=== PATIENT | female | born 2000 | race Caucasian/White ===

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

== ENCOUNTER → 2021-01-27 09:40 | Outpatient (BNVA) | payer MEDICAID, SELFPAY | PROVIDERS: Visit Provider Obstetrics & Gynecology | DX: Z34.01 Encounter for supervision of normal first pregnancy, first trimester (principal) | CPT/HCPCS: 80307; 84315; 85027; 86592; 86762; 86803; 86850; 86900; 87086; 87340; 87806 ==

== ENCOUNTER → 2021-02-10 09:06 | Outpatient (BNVA) | payer MEDICAID, SELFPAY | PROVIDERS: Visit Provider Obstetrics & Gynecology | DX: Z34.01 Encounter for supervision of normal first pregnancy, first trimester (principal) | CPT/HCPCS: 84315; 87491; 87591 ==

== ENCOUNTER → 2021-03-11 14:37 | Outpatient (BNVA) | payer MEDICAID, SELFPAY | PROVIDERS: Visit Provider Nurse Practitioner Women's Health | DX: O99.331 Smoking (tobacco) complicating pregnancy, first trimester (principal); Z78.9 Other specified health status; Q83.3 Accessory nipple | CPT/HCPCS: 82105; 84315 ==

== ENCOUNTER → 2021-04-09 13:04 | Outpatient (BNVA) | payer MEDICAID, SELFPAY | PROVIDERS: Visit Provider Obstetrics & Gynecology | DX: Z34.92 Encounter for supervision of normal pregnancy, unspecified, second trimester (principal); Z3A.21 21 weeks gestation of pregnancy | CPT/HCPCS: 76805 ==

== ENCOUNTER 2021-04-12 12:54 | Outpatient (CLI) | payer MEDICAID, SELFPAY ==
[2021-04-12] VITALS (7 sets, daily range): BP systolic 113–128; BP diastolic 56–72; PULSE 50–64; RESP 15–16; TEMP 37.1; BMI 20.4
[2021-04-12] MEDS: ketorolac 30 mg/mL INJ IVP (13:34)
[2021-04-12 13:56] LABS: Amphetamines Screen Urine Negative (Negative); Barbiturates Screen Urine Negative (Negative); Benzodiazepines Screen Urine Negative (Negative); Cocaine Screen Urine Negative (Negative); Opiate Screen Urine Negative (Negative); PCP Screen Urine Negative (Negative); THC Screen Urine Positive (Negative)
[2021-04-12 13:57] LABS: Amorphous Sediment Urine 2+ /hpf; Bacteria Urine 1+ /hpf; Bilirubin Urine Neg (Negative); Blood Urine 3+ (Negative); Glucose Urine UA Norm (Normal); Ketones Urine Negative (Negative); Leukocyte Esterase Urine Negative (Negative); Nitrate Urine Negative (Negative); Protein Urine Neg (Negative); RBC Urine 25-40 /hpf (0-2); Specific Gravity, Urine 1.015 (1.005-1.030); Squamous Epithelial Cell Urine 0-4 /hpf (0-5); Urine Appearance Hazy (CLEAR); Urine Color Yellow (Yellow); Urobilinogen Urine Norm (Negative); WBC Urine 0-4 /hpf (0-5); pH Urine 7 (5-7)
[2021-04-12 13:58] LABS: Add Urine Culture? Yes
--- NOTE | 2021-04-12 14:26 | PC.NURSE ---
Prescription for Keflex 750mg bid x7 days, no refills called to Will at [facility] in [place]. Patient requested this pharmacy because her preferred pharmacy is closed today.
[2021-04-12] MEDS: cefTRIAXone 2,000 MG in sodium chloride 0.9% (plus) 50 ML 100 MG IV (14:39)
== END 2021-04-12 15:07 | disposition home or self-care (01) ==
LOC: OPOB 12:57 → OBGYN 12:59
PROVIDERS: Visit Provider Obstetrics & Gynecology
DX: O26.899 Other specified pregnancy related conditions, unspecified trimester (principal); Z3A.00 Weeks of gestation of pregnancy not specified; R10.9 Unspecified abdominal pain
CPT/HCPCS: 80306; 81001; 87086; 96374; 99211; J0696; J1885

== ENCOUNTER → 2021-05-06 11:22 | Outpatient (BNVA) | payer MEDICAID, SELFPAY | PROVIDERS: Visit Provider Nurse Practitioner Women's Health | DX: O99.331 Smoking (tobacco) complicating pregnancy, first trimester (principal); Q83.3 Accessory nipple; N63.20 Unspecified lump in the left breast, unspecified quadrant | CPT/HCPCS: 82950; 84315 ==

== ENCOUNTER → 2021-06-03 10:24 | Outpatient (BNVA) | payer MEDICAID, SELFPAY | PROVIDERS: Visit Provider Obstetrics & Gynecology | DX: Z34.01 Encounter for supervision of normal first pregnancy, first trimester (principal) | CPT/HCPCS: 84315; 85025 ==

== ENCOUNTER 2021-07-11 16:21 | Outpatient (CLI) | payer MEDICAID, SELFPAY ==
[2021-07-11] VITALS (16 sets, daily range): BP systolic 108–170; BP diastolic 56–83; PULSE 49–112; RESP 18; TEMP 36.8; BMI 27.8
[2021-07-11 17:06] LABS: Bacteria Urine 1+ /hpf; Bilirubin Urine Neg (Negative); Blood Urine Neg (Negative); Glucose Urine UA 1+ (Normal); Ketones Urine 1+ (Negative); Leukocyte Esterase Urine Negative (Negative); Nitrate Urine Negative (Negative); Protein Urine Neg (Negative); Specific Gravity, Urine 1.005 (1.005-1.030); Urine Appearance Clear (CLEAR); Urine Color Straw (Yellow); Urobilinogen Urine Norm (Negative); WBC Urine 0-4 /hpf (0-5); pH Urine 6.5 (5-7)
[2021-07-11 17:07] LABS: Add Urine Culture? No; Mucus Urine TRACE /hpf
[2021-07-11] MEDS: NIFEdipine ER (24 hr) 30 mg Tablet PO (17:11)
== END 2021-07-11 19:35 | disposition home or self-care (01) ==
LOC: OPOB 16:23 → OBGYN 16:24
PROVIDERS: Visit Provider Obstetrics & Gynecology
DX: O26.899 Other specified pregnancy related conditions, unspecified trimester (principal); Z3A.00 Weeks of gestation of pregnancy not specified; R10.9 Unspecified abdominal pain; R11.2 Nausea with vomiting, unspecified
CPT/HCPCS: 59025; 81001; 99211

== ENCOUNTER 2021-07-14 21:52 | Outpatient (CLI) | payer MEDICAID, SELFPAY ==
[2021-07-14 21:52] VITALS: BMI 23.6
[2021-07-14 22:00] VITALS: BP 136/71; PULSE 86; TEMP 36.8
[2021-07-14 22:15] VITALS: RESP 17
[2021-07-14 22:31] LABS: Add Urine Culture? No; Bacteria Urine TRACE /hpf; Bilirubin Urine Neg (Negative); Blood Urine Neg (Negative); Glucose Urine UA Norm (Normal); Ketones Urine 1+ (Negative); Leukocyte Esterase Urine Negative (Negative); Nitrate Urine Negative (Negative); Protein Urine Neg (Negative); RBC Urine 0-4 /hpf (0-2); Specific Gravity, Urine 1.005 (1.005-1.030); Squamous Epithelial Cell Urine 0-4 /hpf (0-5); Urine Appearance Clear (CLEAR); Urine Color Colorless (Yellow); Urobilinogen Urine Norm (Negative); WBC Urine 0-4 /hpf (0-5); pH Urine 8 (5-7)
[2021-07-14 23:59] VITALS: BP 137/86; PULSE 77
[2021-07-15] MEDS: NIFEdipine ER (24 hr) 30 mg Tablet PO (00:23)
[2021-07-15 01:06] VITALS: BP 132/82; PULSE 84
[2021-07-15 01:18] VITALS: BP 132/82; PULSE 84; RESP 17
== END 2021-07-15 01:18 | disposition home or self-care (01) ==
LOC: OPOB 21:55 → OBGYN 21:55
PROVIDERS: Visit Provider Obstetrics & Gynecology
DX: O26.899 Other specified pregnancy related conditions, unspecified trimester (principal); Z3A.00 Weeks of gestation of pregnancy not specified; R10.9 Unspecified abdominal pain
CPT/HCPCS: 59025; 81001; 99211

== ENCOUNTER → 2021-07-29 08:37 | Outpatient (BNVA) | payer MEDICAID, SELFPAY | PROVIDERS: Visit Provider Obstetrics & Gynecology | DX: Z34.01 Encounter for supervision of normal first pregnancy, first trimester (principal) | CPT/HCPCS: 80307; 81000; 87081 ==

== ENCOUNTER 2021-08-09 21:13 | Inpatient (IN) | payer MEDICAID, SELFPAY ==
[2021-08-09] VITALS (9 sets, daily range): BP systolic 113–142; BP diastolic 66–74; PULSE 70–103; TEMP 36.6–37.6; BMI 26.0
--- NOTE | 2021-08-09 22:52 | PM.OPHPUD ---
Labor & Delivery H&P Update Date of Procedure: August 09, 2021 Date H&P Performed: 08/04/21 H&P update information: I have reviewed H&P completed within last 30 days, I have examined patient prior to procedure and Changes to prior documentation as noted here Changes to previous documentation: the patient presents with SROM at 2008 hours. Clear. Copious fluid on admission Admission Diagnosis: IUP @ 37w6d Related Problem List Diagnoses (1) Tobacco use in : (2) Supervision of normal :
[2021-08-09 23:28] LABS: Basophils % 0.3 %; Eosinophils % 0.2 %; Hematocrit 34.5 % (37.0-47.0); Hemoglobin 12.2 g/dL (11.5-15.3); Lymphocytes # 1.5 10^3/uL (1.5-6.5); Mean Corpuscular HGB Conc 35.4 g/dL (30.0-36.0); Mean Corpuscular Hemoglobin 33.9 pg (28.0-34.0); Mean Corpuscular Volume 95.8 fl (81-99); Mean Platelet Volume 13.8 fL (7.4-10.4); Monocytes % 7.3 %; Neutrophils % 80.7 %; Nucleated Red Blood Cells % 0 %; Platelet Count 105 10^3/cmm (130-400); Red Cell Distribution Width 12.2 % (12.1-15.1); White Blood Count 13.4 10^3/uL (4.5-13.0)
[2021-08-10] VITALS (80 sets, daily range): BP systolic 107–171; BP diastolic 56–91; PULSE 52–97; RESP 16–17; TEMP 36.6–36.8; O2SAT 100
[2021-08-10 07:12] LABS: Amphetamines Screen Urine Negative (Negative); Barbiturates Screen Urine Negative (Negative); Benzodiazepines Screen Urine Negative (Negative); Cocaine Screen Urine Negative (Negative); Opiate Screen Urine Negative (Negative); PCP Screen Urine Negative (Negative); THC Screen Urine Positive (Negative)
[2021-08-10] MEDS: dextrose 5%-lactated ringers 1,000 ML 125 ML IV (10:41)
[2021-08-10] MEDS: oxytocin 30 UNIT/500 ML BAG IV (10:42)
--- NOTE | 2021-08-10 10:55 | ANES.PREANE2 ---
Pre-Anesthetic Assessment Pre-Anesthetic Assessment: Height/Weight: Height 1.55 m Weight 62.596 kg Temp Pulse BP 98.0 F 67 121/68 08/10/21 04:00 08/10/21 10:43 08/10/21 10:43 Was Beta Mary taken within 24 hours: N/A Was Clonidine taken within 24 hours: N/A Social: Social History: No alcohol and No tobacco Exam: Pre-Anes Outpt Exam: alert, oriented x 3, clear to auscultation bilaterally and regular rate & rhythm Airway: Submandibular: WNL Cervical ROM: WNL MP: 2 Dentition: Full History/ROS: No significant history except as noted Anesthetic Plan: ASA status: 2 Anesthesia: Regional (specify below) (labor epidural) Risk of > 500 ml blood loss (7ml/kg in children): No Meds/Allergies Current Medications: Current Medications Generic Name Dose Route Start Last Admin Trade Name Freq PRN Reason Stop Dose Admin Dextrose/Lactated Ringer's 1,000 mls @ 125 m ls/hr 08/09/21 23:15 08/10/21 10:41 Dextrose 5%-Lact ated Ringers IV 125 mls/hr .Q8H AG Administration Oxytocin 30 unit in 500 ml s @ 1 mls/hr 08/10/21 10:15 08/10/21 10:42 Pitocin IV 1 milliunit/min .Q24H AG 1 mls/hr Administration Protocol 1 MILLIUNIT/MIN PFSH Anesthesia PFSH: Medical History Fibroadenoma Nephrolithiasis No pertinent past medical history neghx: htn,dm,thyroid,dvt/pe PCP: [facility] Surgical History History of lumpectomy (~2015) Left breast-- fibroadenoma Family History Mother Hypertension Family/Other Ovarian cancer Maternal Great Aunt--dx age unknown Grandmother Thyroid disease Paternal Grandfather Heart disease Paternal Denies family history of Colon cancer Diabetes Hypercholesteremia Breast cancer Uterine cancer Stroke Social History Smoking and tobacco status: never smoked Alcohol intake: former Former alcohol use details: prior to Other details last substance use: marijuana last used beginning of 01/2021 Marital status: Single Female Reproductive History: Date of last menstrual period: 07/01/20 : 1 Data Anesthesia CBC & Chem 7: 08/09/21 22:45 Other Labs: Laboratory Results - last 48 hr 08/09/21 08/10/21 22:45 06:40 WBC 13.4 H RBC 3.60 L Hgb 12.2 Hct 34.5 L MCV 95.8 MCH 33.9 MCHC 35.4 RDW 12.2 Plt Count 105 L MPV 13.8 H Neut % (Auto) 80.7 Lymph % (Auto) 11.0 Hettinger % (Auto) 7.3 Eos % (Auto) 0.2 Baso % (Auto) 0.3 Neut # (Auto) 10.80 H Lymph # (Auto) 1.5 Hettinger # (Auto) 1.0 H Eos # (Auto) 0.0 Baso # (Auto) 0.0 Nucleated RBC % (auto) 0 Nucleated RBCs # 0.0 Urine Opiates Screen Negative Ur Barbiturates Screen Negative Ur Phencyclidine Scrn Negative Ur Amphetamines Screen Negative U Benzodiazepines Scrn Negative Urine Cocaine Screen Negative U Marijuana (THC) Screen Positive H Cardiac Studies: No Data to Display
[2021-08-10] MEDS: lactated ringers 1,000 ML 999 ML IV (12:50)
--- NOTE | 2021-08-10 13:19 | PM.PN ---
Vitals/I&O/Wt Last Vital Signs Temp 98.0 F 08/10/21 04:00 Pulse 63 08/10/21 13:03 BP 122/69 08/10/21 13:03 08/09/21 08/10/21 08/10/21 22:59 06:59 14:59 Intake Total 271.617 / 271.617 Balance 271.617 / 271.617 Weight last 48 hrs Weight 138 lb Physical Exam Narrative: EXAM NARRATIVE: The patient has been allowed to labor over night as she was having pretty regular contractions. She has not had further dilation of her cervix. Pitocin has been started. She is starting to have regular pain and is requesting an epidural. Cervix 3/90/0, status is overall very reassuring. GI: COMMON NORMALS: non-tender Extremity: COMMON NORMALS: no calf tenderness Data : 08/09/21 22:45 Attestations Medical Necessity Statement*: The patient will spend 2 or more midnights Coding Level of Care Code Acute Gerentological Physiotherapist for Maeve Cheek
--- NOTE | 2021-08-10 14:20 | P.ANES_ITS ---
Anesthesia Procedures Procedure/Date: 08/10/21 SONIA Epidural: Time Out Performed: Yes Consents Signed: Procedure Consent Consent: requested by attending/covering physician, from patient, risks and bene fits reviewed and patient agrees to proceed Lumbar Level: L3-L4 Epidural position: sitting Epidural procedure: sterile prep of area, 1% lidocaine to numb the area, 18 g needle, negative for paresthesia passed, test dose given, 1.5% xylocaine 1:200k epi, placed PCEA, no systemic response, sterile dressing applied, L.U.D. no apparent complications and 0.2% Ropiavacaine @ mls/hr (13) Additional Comments: SUSAN 6 TAped at 12 at skin.
[2021-08-10] MEDS: ampicillin 2,000 MG in sodium chloride 0.9% (plus) 50 ML 100 MG IV (15:36)
[2021-08-10] MEDS: ampicillin 1,000 MG in sodium chloride 0.9% (plus) 50 ML 100 MG IV (19:35)
--- NOTE | 2021-08-10 22:36 | PM.DELIVERY ---
Delivery Note: Date of delivery: August 10, 2021 Pre-delivery diagnoses: IUP at 38 weeks Post-delivery diagnoses: same delivered Procedure: Op report anesthesia: Epidural Delivering Physician: jeanie Estimated blood loss (mL): 75 Findings: term female in the VERONICA presentation with a single nuchal cord, reduced at the perineum Pre-Delivery Course: The patient was admitted with PROM. She was having strong contractions, but she didn't make any cervical change. Pitocin was started. at 18 hours of ROM, ampicillin was started for infection prophylaxis. The patient had complete cervical dilation and began pushing. Delivery: The patient had complete cervical dilation and began to push. She was having decelerations that were going to the 60's and staying for approximately one minute, then the baby would recover. The mother was making poor pushing efforts. The vacuum was placed onto the scalp and the pumped into the green zone. The head was at the +3 station. The vacuum popped off after 16 seconds. There was a nice crown at this point. The vacuum was applied at the end of the next push because the mother again was having poor pushing effort. The vacuum popped off after 4 seconds. The heart rate continued to go to the 60's and stay for at least a minute before recovery. Next, I asked permission to perform an episiotomy with the next push. I injected about 10 ml of 2% lidocaine in the perineal body and with the next push, I cut a midline episiotomy. The pushing efforts were again poor. With the next push, I placed the vacuum for a third time and pumped it to the green with the contraction. I held pressure on the perineum with my left hand and used the vacuum with my right hand and the head delivered in the VERONICA position over the midline episiotomy under epidural anesthesia. The nose and mouth were bulb suctioned. There was a single nuchal cord which was reduced at the perineum. The shoulders and body delivered atraumatically. The baby was placed onto the mother's abdomen. The cord was clamped and cut. Cord blood was obtained. The placenta delivered spontaneously. It was inspected and found to be intact. Inspection of the perineum revealed There was no extension of the episiotomy. Estimated blood loss 75 mL. Apgars on baby were 8 at 1 minute and 10 at 5 minutes. Weight of baby is 6 pounds 11 ounces. Mother and baby were stable post delivery. History History History 1 Term Miscarriages/Ectopic Living Children A&P Assessment and plan (1) Tobacco use in : Status: Acute Qualifiers: Trimester: first trimester Qualified Code(s): O99.331 - Smoking (tobacco) complicating , first trimester (2) Supervision of normal : Status: Acute Qualifiers: Normal : normal first Trimester: first trimester Qualified Code(s): Z34.01 - Encounter for supervision of normal first , first trimester Coding Level of Care Code Acute Collection Coordinator for Chg Fwd Diagnoses Tobacco use in O99.331 Trimester: first trimester Supervision of normal Z34.01 Normal : normal first Trimester: first trimester
[2021-08-10] MEDS: ibuprofen 800 mg tablet PO (22:59)
[2021-08-10] MEDS: HYDROcodone-acetaminophen 5-325 mg Tablet PO (23:48)
[2021-08-11] VITALS (15 sets, daily range): BP systolic 112–157; BP diastolic 62–91; PULSE 64–96; RESP 18; TEMP 36.3–36.8
[2021-08-11] MEDS: lanolin oint 7 gm 1 APPLIC TOPICAL (06:02)
[2021-08-11] MEDS: benzocaine-menthol 78 gm Canister 1 SPRAY TOPICAL (06:03)
[2021-08-11] MEDS: HYDROcodone-acetaminophen 5-325 mg Tablet PO ×3 (07:03→22:40)
[2021-08-11] MEDS: ibuprofen 800 mg tablet PO ×3 (09:14→20:55)
[2021-08-11] MEDS: docusate sodium 100 mg Capsule PO ×2 (09:14→20:55)
[2021-08-11] MEDS: prenatal vitamin Capsule 1 CAP PO (09:14)
--- NOTE | 2021-08-11 12:34 | P.PN_ITS ---
Vitals/I&O/Wt Last Vital Signs Temp 97.6 F 08/11/21 07:47 Pulse 96 08/11/21 07:39 Resp 18 08/11/21 07:47 BP 121/81 08/11/21 07:39 Pulse Ox 100 08/10/21 14:13 08/10/21 08/11/21 08/11/21 22:59 06:59 14:59 Intake Total 390.816 / 1333.300 850.667 / 2183.967 Output Total 1200 / 1200 1900 / 3100 Balance -809.184 / 133.300 -1049.333 / -916.033 Weight last 48 hrs Weight 138 lb Physical Exam Narrative: EXAM NARRATIVE: The patient is doing well this morning. No concern s Const: COMMON NORMALS: no acute distress, average body habitus, patient oriented x3, no limitations, healthy appearing, alert and well nourished GENERAL APPEARANCE: cooperative, comfortable, well kempt and well developed ORIENTATION/CONSCIOUSNESS: Yes awake, Yes oriented to person, Yes oriented to place and Yes oriented to time Resp: COMMON NORMALS: normal respiratory effort EFFORT & INSPECTION: Yes able to speak in complete sentences GI: COMMON NORMALS: Soft to palpation and non-tender PALPATION: Yes Soft to palpation Extremity: COMMON NORMALS: no calf tenderness Neuro: COMMON NORMALS: patient oriented x3 SENSORIUM/ORIENTATION: Yes alert, Yes oriented to person, Yes oriented to place and Yes oriented to time Psych: COMMON NORMALS: mental status grossly normal, Normal thought process present, cooperative, normal affect and speech normal APPEARANCE: Yes grossly normal and Yes well kempt ATTITUDE: Yes calm and Yes engaged ACTIVITY/MOTOR BEHAVIOR: Yes appropriate eye contact SPEECH: Yes normal speech THOUGHT PROCESS: Normal thought process present Urinary Catheter Management^: Lewis: Cath Placed During This Visit: yes, but has since been removed by the nurse Reason for Continuing Indwelling Catheter: Required Immobilization for Trauma or Surgery or Anesthesia Urinary Catheter Date of Insertion: 08/10/21 Urinary Catheter Time of Insertion: 15:27 Date Urinary Catheter Removed: 08/10/21 Time Urinary Catheter Discontinued: 21:29 Data : 08/09/21 22:45 A&P Assessment and plan (1) Supervision of normal : doing well routine care Status: Acute Qualifiers: Normal : normal first Trimester: first trimester Qualified Code(s): Z34.01 - Encounter for supervision of normal first , first trimester Attestations Medical Necessity Statement*: the patient has already been inpatient for two days Coding Level of Care Code Acute Field Superintendent for Chg Fwd Diagnoses Supervision of normal Z34.01 Normal : normal first Trimester: first trimester
--- NOTE | 2021-08-11 13:21 | ANE.PACU2 ---
Inpatient post-anesthesia follow up: Airway intact: Yes Vital signs: Temperature 98.5 F Pulse Rate 64 Respiratory Rate 16 Blood Pressure 116/60 Pulse Oximetry 100 Oxygen Delivery Me thod Room Air Oxygen Flow Rate Fraction of Inspir ed Oxygen Hydration adequate: Yes Nausea and vomiting: No Pain level: 2 Mental status: Baseline
[2021-08-11 13:38] LABS: Hematocrit 32.3 % (37.0-47.0); Hemoglobin 11.3 g/dL (11.5-15.3); Mean Corpuscular Hemoglobin 33.3 pg (28.0-34.0); Mean Corpuscular Volume 95.3 fl (81-99); Mean Platelet Volume 14.3 fL (7.4-10.4); Platelet Count 104 10^3/cmm (130-400); Red Blood Count 3.39 10^6/uL (4.1-5.3); Red Cell Distribution Width 12.3 % (12.1-15.1); White Blood Count 13.1 10^3/uL (4.5-13.0)
--- NOTE | 2021-08-11 15:00 | PC.NURSE ---
DFS electric utility lineworker in patients room at this time.
[2021-08-12 04:20] VITALS: BP 120/87; PULSE 68
[2021-08-12] MEDS: acetaminophen 325 mg Tablet 650 MG PO (05:05)
--- NOTE | 2021-08-12 07:09 | P.DS_ITS ---
Discharge Providers Date of Admission: 08/09/21 21:13 Date of Discharge: August 12, 2021 Attending Provider at Admission: Claire Ortiz MD Attending Provider at Discharge: Claire Ortiz MD Diagnoses at Discharge Discharge Diagnosis (1) Supervision of normal : Status: Acute Qualifiers: Normal : normal first Trimester: first trimester Qualified Code(s): Z34.01 - Encounter for supervision of normal first , first trimester Reason for Visit Reason for Visit: ROM Physical Exam Narrative: EXAM NARRATIVE: The patient is doing well this morning. Ready to be discharged. No concerns Const: COMMON NORMALS: no acute distress, average body habitus, patient oriented x3, no limitations, healthy appearing, alert and well nourished GENERAL APPEARANCE: cooperative, comfortable, well kempt and well developed ORIENTATION/CONSCIOUSNESS: Yes awake, Yes oriented to person, Yes oriented to place and Yes oriented to time Resp: COMMON NORMALS: normal respiratory effort EFFORT & INSPECTION: Yes able to speak in complete sentences GI: COMMON NORMALS: Soft to palpation and non-tender PALPATION: Yes Soft to palpation Extremity: COMMON NORMALS: no calf tenderness Neuro: COMMON NORMALS: patient oriented x3 SENSORIUM/ORIENTATION: Yes alert, Yes oriented to person, Yes oriented to place and Yes oriented to time Psych: COMMON NORMALS: mental status grossly normal, Normal thought process present, cooperative, normal affect, speech normal and activity/motor behavior normal APPEARANCE: Yes grossly normal and Yes well kempt ATTITUDE: Yes calm and Yes engaged ACTIVITY/MOTOR BEHAVIOR: Yes appropriate eye contact SPEECH: Yes normal speech THOUGHT PROCESS: Normal thought process present Urinary Catheter Management^: Lewis: Cath Placed During This Visit: yes, but has since been removed by the nurse Reason for Continuing Indwelling Catheter: Required Immobilization for Trauma or Surgery or Anesthesia Urinary Catheter Date of Insertion: 08/10/21 Urinary Catheter Time of Insertion: 15:27 Date Urinary Catheter Removed: 08/10/21 Time Urinary Catheter Discontinued: 21:29 Discharge Data Data Completed and Pending: Labs from last 24 hours 08/11/21 10:00 WBC 13.1 H RBC 3.39 L Hgb 11.3 L Hct 32.3 L MCV 95.3 MCH 33.3 MCHC 35.0 RDW 12.3 Plt Count 104 L MPV 14.3 H Vitals: Last Vital Signs Temp 98.3 F 08/11/21 22:45 Pulse 68 08/12/21 04:20 Resp 18 08/11/21 15:22 BP 120/87 08/12/21 04:20 Pulse Ox 100 08/10/21 14:13 Discharge Plan Discharge Patient Disposition: Home Condition: Stable Prescriptions: Continued prenat.vits,robby,hbr-cpxr-dcvyf Tablet 1 tab PO DAILY RF: 0 Discharge Orders: Discharge Order (Routine); Ordered 08/12/21 Ordered By: Claire Ortiz Referrals: Petr Rocha MD [Physician] - 09/30/21 2:00 pm (Your 6 week post- appointment is scheduled for 09/30/21 @2:00. ) Patient Instructions: Depression (DC), Bleeding (DC), Preeclampsia and Eclampsia After Delivery (GEN), OB Discharge Report, OB Food/Drug Interaction Guide, Opioid Safety, OB Home Care, OB Vaginal Deliveries - [facility] Discharge Attestations Time Spent in Discharge Care*: less than 30 min Status at Discharge: Cognitive status at discharge: cognitively intact , Behavioral status at discharge: cooperative , Quality Metrics Clinical Quality Measures During this hospital stay, did patient experience: None Coding Level of Care Code Acute Chg FW DC note Diagnoses Supervision of normal Z34.01 Normal : normal first Trimester: first trimester
[2021-08-12] MEDS: ibuprofen 800 mg tablet PO (08:26)
[2021-08-12] MEDS: docusate sodium 100 mg Capsule PO (08:26)
[2021-08-12] MEDS: prenatal vitamin Capsule 1 CAP PO (08:27)
[2021-08-12 09:40] VITALS: BP 116/60; PULSE 64; RESP 16; TEMP 36.9
== END 2021-08-12 10:15 | disposition home or self-care (01) | DRG 807 ==
PROVIDERS: Admitting Provider Obstetrics & Gynecology; Visit Provider Obstetrics & Gynecology
DX: O76 Abnormality in fetal heart rate and rhythm complicating labor and delivery (principal); Z37.0 Single live birth; O69.2XX0 Labor and delivery complicated by other cord entanglement, with compression, not applicable or unspecified; O99.334 Smoking (tobacco) complicating childbirth; Z3A.38 38 weeks gestation of pregnancy; O75.9 Complication of labor and delivery, unspecified; Q83.3 Accessory nipple; N63.20 Unspecified lump in the left breast, unspecified quadrant
CPT/HCPCS: 36415; 51702; 59409; 80306; 85025; 85027; 99211; J0290; J2795

== ENCOUNTER 2022-03-15 18:39 | Emergency (ER) | payer MEDICAID, SELFPAY ==
[2022-03-15 20:02] VITALS: PULSE 77; RESP 18; TEMP 36.8; O2SAT 97; BMI 20.7
[2022-03-15 20:16] LABS: Basophils # 0.1 10^3/uL (0.0-0.1); Basophils % 0.8 %; Eosinophils # 0.1 10^3/uL (0.0-0.8); Eosinophils % 0.7 %; Hematocrit 42.9 % (37.0-47.0); Hemoglobin 14.9 g/dL (11.5-15.3); Lymphocytes # 2.5 10^3/uL (1.5-6.5); Lymphocytes % 20.8 %; Mean Corpuscular HGB Conc 34.7 g/dL (30.0-36.0); Mean Corpuscular Hemoglobin 31.4 pg (28.0-34.0); Mean Corpuscular Volume 90.3 fl (81-99); Mean Platelet Volume 12.1 fL (7.4-10.4); Monocytes % 8.8 %; Neutrophils # 8.09 10^3/uL (1.8-8.0); Neutrophils % 68.6 %; Nucleated Red Blood Cells % 0 %; Platelet Count 264 10^3/cmm (130-400); Red Blood Count 4.75 10^6/uL (4.1-5.3); Red Cell Distribution Width 12.5 % (12.1-15.1); White Blood Count 11.8 10^3/uL (4.5-13.0)
[2022-03-15 20:25] LABS: Alanine Aminotransferase 10 U/L (0-33); Albumin Level 4.8 g/dL (3.5-5.2); Alkaline Phosphatase 113 IU/L (35-105); Anion Gap 16.7 (5-19); Aspartate Amino Transferase 14 U/L (0-32); Blood Urea Nitrogen 12 mg/dL (6-20); Calcium 9.4 mg/dL (8.5-10.5); Carbon Dioxide 24 mmol/L (22-29); Chloride 102 mmol/L (98-107); Globulin 3.3 g/dL (1.3-4.6); Glomerular Filtration Rate 106.7 mL/min (90-130); Glucose 106 mg/dL (65-115); Osmolality Calculated 288 mOsm/kg (285-295); Potassium 3.7 mmol/L (3.5-5.1); Sodium 139 mmol/L (136-145); Total Bilirubin 0.3 mg/dL (0.15-1.2); Total Protein 8.1 g/dL (6.6-8.7)
[2022-03-15 21:10] LABS: Slide Review Slide Review Perform
--- NOTE | 2022-03-15 21:59 | ECG_ITS ---
[facility] Test Date: 2022-03-15 Pat Name: Joshua Sevilla Department: Room: Gender: Female Recreational Specialist: : 2000 Requested By: Diaz Bender Order Number: [id number] Romero MD: Williams Cardenas M.D. Measurements Intervals Walker Rate: 51 P: 13 IN: 146 QRS: 93 QRSD: 94 T: 72 QT: 469 QTc: 433 Interpretive Statements SINUS BRADYCARDIA WITH SINUS ARRHYTHMIA BORDERLINE RIGHT AXIS DEVIATION [QRS AXIS > 90] INCOMPLETE RIGHT BUNDLE BRANCH BLOCK [90+ ms QRS DURATION, TERMINAL R IN V1/V2, 40+ ms S IN I/aVL/V4/V5/V6] No previous ECG available for comparison Electronically Signed On 03-16-2022 17:32:53 CDT by Williams Cardenas M.D. [id number]
--- NOTE | 2022-03-15 22:10 | XRR_ITS ---
PROCEDURE INFORMATION: Exam: XR Chest Exam date and time: 03/15/2022 10:43 PM Age: 21 years old Clinical indication: Cough and shortness of breath; Additional info: SOB TECHNIQUE: Imaging protocol: Radiologic exam of the chest. Views: 1 view. COMPARISON: CR XR chest 1V portable [id number] 12/31/2020 9:54 PM FINDINGS: Lungs: Unremarkable. No consolidation. Pleural spaces: Unremarkable. No pleural effusion. No pneumothorax. Heart/Mediastinum: Unremarkable. No cardiomegaly. Bones/joints: Unremarkable. XR/XR chest 1V portable [id number] IMPRESSION: No acute findings.
--- NOTE | 2022-03-15 22:10 | CTR_ITS ---
PROCEDURE INFORMATION: Exam: CT Head Without Contrast Exam date and time: 03/15/2022 11:25 PM Age: 21 years old Clinical indication: Weakness, facial; Patient HX: C/O facial numbness. TECHNIQUE: Imaging protocol: Computed tomography of the head without contrast. Radiation optimization: All CT scans at this facility use at least one of these dose optimization techniques: automated exposure control; mA and/or kV adjustment per patient size (includes targeted exams where dose is matched to clinical indication); or iterative reconstruction. COMPARISON: No relevant prior studies available. RADIATION DOSE METRICS: Total DLP (mGy-cm): 748.6 FINDINGS: Brain: Normal. No hemorrhage. Unremarkable white matter. No mass effect. Cerebral ventricles: No ventriculomegaly. Paranasal sinuses: Visualized sinuses are unremarkable. No fluid levels. Mastoid air cells: Visualized mastoid air cells are well aerated. Bones/joints: Unremarkable. No acute fracture. Soft tissues: Unremarkable. CT/CT head wo con* [id number] IMPRESSION: No acute intracranial abnormality.
--- NOTE | 2022-03-15 22:11 | W.ED.ANXIETY ---
HPI - Anxiety General: Chief Complaint: Anxiety Stated Complaint: SOB\ Hands Numb Time Seen by Provider: 03/15/22 21:59 History of Present Illness: Patient is a 21-year-old female comes to the ED with multiple complaints. Patient states she has been having some anxiety and shortness of breath for the past 2 days. Today she was at work in was having more shortness of breath and anxiety and her hands bilateral hands started feeling numb and tingly. She was also getting some numbness and tingling sensation in her face bilaterally and feels like her eyes are twitching. Denies any head injury, headache, coughing, fevers, vomiting, abdominal pain, bladder or bowel symptoms. Patient denies being currently and has not had a menstrual period since she delivered her baby 7 months ago. Associated symptoms: Deny chest pain, chills, fever(s), headache(s), nausea, palpitations or vomiting Review of Systems Const: Denies: fever(s), chills or fatigue Eyes: Denies: change in vision or eye discomfort ENMT: Denies: throat pain, odynophagia, nasal discharge or nasal congestion Card: Denies: chest pain, palpitations, edema, swelling of feet/ankles, dyspnea on exertion or orthopnea Resp: Reports: dyspnea; Denies: productive cough or non-productive cough GI: Denies: abdominal pain, nausea, vomiting, diarrhea, constipation or hematochezia : Denies: flank pain, dysuria or hematuria Musc: Denies: neck pain, back pain or extremity swelling Skin/Breast: Denies: rash or new lesions Neuro: Reports: numbness in extremities (Bilateral hands) and sensory changes (Numbness and tingling bilateral face); Denies: headache(s) or weakness in extremities Psych: Reports: anxiety PFS ED PFSH: Medical History Fibroadenoma Nephrolithiasis No pertinent past medical history neghx: htn,dm,thyroid,dvt/pe PCP: [facility] Surgical History History of lumpectomy (~2015) Left breast-- fibroadenoma Family History Mother Hypertension Family/Other Ovarian cancer Maternal Great Aunt--dx age unknown Grandmother Thyroid disease Paternal Grandfather Heart disease Paternal Denies family history of Colon cancer Diabetes Hypercholesteremia Breast cancer Uterine cancer Stroke Social History Smoking and tobacco status: never smoked Alcohol intake: former Former alcohol use details: prior to Other details last substance use: marijuana last used beginning of 01/2021 Marital status: Single Female Reproductive History: Date of last menstrual period: 07/01/20 Physical Exam Const: COMMON NORMALS: patient oriented x3, healthy appearing and alert GENERAL APPEARANCE: cooperative and anxious (Patient appears very anxious) HENMT: COMMON NORMALS: normocephalic HEAD & SCALP: normocephalic MOUTH: Normal oral and palatal mucosa present THROAT: posterior oropharynx normal and uvula midline Eye: COMMON NORMALS: Equal, round and reactive pupils present, EOMs intact bilaterally and conjunctivae normal CONJUNCTIVA: Yes conjunctivae normal PUPIL: Yes Equal, round and reactive pupils present Neck/C-Spine: COMMON NORMALS: supple GENERAL: Yes normal visual inspection Resp: COMMON NORMALS: normal respiratory effort, No retractions, No use of accessory muscles and clear to auscultation bilaterally AUSCULTATION: clear to auscultation bilaterally Cardio: COMMON NORMALS: regular rate, regular rhythm, S1 normal heart sound present, S2 normal heart sound present, No gallops present (Cardio), No clicks present (Cardio), No murmurs present (Cardio) and Peripheral pulses 2+ throughout RATE: regular rate RHYTHM: regular rhythm HEART SOUNDS: S1 normal heart sound present and S2 normal heart sound present PERIPHERAL PULSES: Peripheral pulses 2+ throughout GI: COMMON NORMALS: Normal to inspection, nondistended, normoactive bowel sounds present, Soft to palpation, non-tender and no masses PALPATION: Yes Soft to palpation : COMMON NORMALS: Yes no CVA tenderness BLADDER/KIDNEY EXAM: Yes no CVA tenderness Back/Pelvis: COMMON NORMALS: no CVA tenderness Extremity: COMMON NORMALS: normal to inspection and no pedal edema Neuro: COMMON NORMALS: patient oriented x3 and moves all extremities SENSORIUM/ORIENTATION: Yes alert Skin: GENERAL SKIN EXAM: dry skin Course Vital Signs: Vital signs: Vital Signs Temperature 98.9 F 03/16/22 00:49 Pulse Rate 61 03/16/22 00:49 Respiratory Rate 18 03/16/22 00:49 Blood Pressure 110/55 03/16/22 00:49 Pulse Oximetry 99 03/16/22 00:49 MDM - Anxiety Medical Decision Making Patient is a 21-year-old female comes to the ED with multiple complaints. Patient states she has been having some anxiety and shortness of breath for the past 2 days. Today she was at work in was having more shortness of breath and anxiety and her hands bilateral hands started feeling numb and tingly. Has a history of anxiety and was taking Vistaril as needed for acute anxiety episodes but she has recently ran out of medication. Vitals are stable. Patient appears anxious but rest of exam is benign. Labs are unremarkable hCG was negative. Chest x-ray showed no acute findings. EKG showed no acute findings. CT of head showed no acute findings. Patient was given dose of Ativan here in the ED and her symptoms resolved. She was diagnosed with acute anxiety and was discharged home with a prescription for Vistaril. Return to ED precautions given. Follow-up with PCP in the next week for reevaluation. Patient understood and agreed with plan. Lab Data I reviewed the patient's lab results. : 03/15/22 20:04 03/15/22 20:04 Radiology Impressions Chest X-Ray 03/15/22 22:10 IMPRESSION: No acute findings. Head CT 03/15/22 22:10 IMPRESSION: No acute intracranial abnormality. Laboratory Results WBC 11.8 10^3/uL (4.5-13.0) 03/15/22 20:04 RBC 4.75 10^6/uL (4.1-5.3) 03/15/22 20:04 Hgb 14.9 g/dL (11.5-15.3) 03/15/22 20:04 Hct 42.9 % (37.0-47.0) 03/15/22 20:04 MCV 90.3 fl (81-99) 03/15/22 20:04 MCH 31.4 pg (28.0-34.0) 03/15/22 20:04 MCHC 34.7 g/dL (30.0-36.0) 03/15/22 20:04 RDW 12.5 % (12.1-15.1) 03/15/22 20:04 Plt Count 264 10^3/cmm (130-400) 03/15/22 20:04 MPV 12.1 fL (7.4-10.4) H 03/15/22 20:04 Neut % (Auto) 68.6 % 03/15/22 20:04 Lymph % (Auto) 20.8 % 03/15/22 20:04 [place]lin % (Auto) 8.8 % 03/15/22 20:04 Eos % (Auto) 0.7 % 03/15/22 20:04 Baso % (Auto) 0.8 % 03/15/22 20:04 Neut # (Auto) 8.09 10^3/uL (1.8-8.0) H 03/15/22 20:04 Lymph # (Auto) 2.5 10^3/uL (1.5-6.5) 03/15/22 20:04 [place]lin # (Auto) 1.0 10^3/uL (0.2-0.9) H 03/15/22 20:04 Eos # (Auto) 0.1 10^3/uL (0.0-0.8) 03/15/22 20:04 Baso # (Auto) 0.1 10^3/uL (0.0-0.1) 03/15/22 20:04 Nucleated RBC % (auto) 0 % 03/15/22 20:04 Nucleated RBCs # 0.0 /100WBC 03/15/22 20:04 Sodium 139 mmol/L (136-145) 03/15/22 20:04 Potassium 3.7 mmol/L (3.5-5.1) 03/15/22 20:04 Chloride 102 mmol/L (98-107) 03/15/22 20:04 Carbon Dioxide 24 mmol/L (22-29) 03/15/22 20:04 Anion Gap 16.7 (5-19) 03/15/22 20:04 BUN 12 mg/dL (6-20) 03/15/22 20:04 Creatinine 0.7 mg/dL (0.5-0.9) 03/15/22 20:04 GFR Calculation 106.7 mL/min (90-130) 03/15/22 20:04 Glucose 106 mg/dL (65-115) 03/15/22 20:04 Calculated Osmolality 288 mOsm/kg (285-295) 03/15/22 20:04 Calcium 9.4 mg/dL (8.5-10.5) 03/15/22 20:04 Total Bilirubin 0.3 mg/dL (0.15-1.2) 03/15/22 20:04 AST 14 U/L (0-32) 03/15/22 20:04 ALT 10 U/L (0-33) 03/15/22 20:04 Alkaline Phosphatase 113 IU/L (35-105) H 03/15/22 20:04 Total Protein 8.1 g/dL (6.6-8.7) 03/15/22 20:04 Albumin 4.8 g/dL (3.5-5.2) 03/15/22 20:04 Globulin 3.3 g/dL (1.3-4.6) 03/15/22 20:04 HCG, Qual Negative (Negative) 03/15/22 23:00 EKG Data EKG 1: EKG interpretation date: 03/15/22 Interpretation: Chest X-Ray 03/15/22 22:10 IMPRESSION: No acute findings. Head CT 03/15/22 22:10 IMPRESSION: No acute intracranial abnormality. Sinus bradycardia, 51 bpm, no ST segment elevation or depression seen. Other EKG comments: Chest X-Ray 03/15/22 22:10 IMPRESSION: No acute findings. Head CT 03/15/22 22:10 IMPRESSION: No acute intracranial abnormality. Discharge Plan Discharge Patient Disposition: Home Clinical Impression: Acute anxiety Condition: Stable Prescriptions: New Vistaril 50 mg capsule 50 mg PO Q8H PRN (Reason: Acute anxiety) Qty: 30 0RF No Action prenat.vits,robby,[id number] Tablet 1 tab PO DAILY 0RF Discharge Orders: Discharge ED (Routine); Ordered 03/16/22 Ordered By: Diaz Bender Discharge Diet: Regular Discharge Activity: Increase activity as tolerated Patient Instructions: Anxiety (ED) Activity Restrictions/Additional Instructions: Follow-up with medical provider as directed. Take medications as prescribed. Return to the ER or your medical provider if condition worsens. Please read and understand discharge instructions. Thank you for choosing [facility] for your healthcare needs today. Please realize this is an emergency room and that we are providing you with a medical screening exam and this may not be complete and all inclusive of all the testing and or work up that you may need to determine your ailment or severity of your illness. It is very important that you follow up as instructed or that you return to the Emergency Department should you have concerns or if your condition changes or worsens in any way. Coding Level of Care Code ED Adhesive Bandage Machine Operator for Maeve Fwdeepti Exam Comprehensive
[2022-03-15] MEDS: LORazepam 2 mg/mL INJ 1 mL 1 MG IM (22:28)
[2022-03-15 22:54] VITALS: BP 114/69; PULSE 59; RESP 20; TEMP 37.2; O2SAT 99
[2022-03-15 23:16] LABS: HCG Qualitative Urine. Negative (Negative)
[2022-03-15 23:30] VITALS: BP 110/55; PULSE 61; RESP 18; TEMP 37.2; O2SAT 99
[2022-03-16 00:49] VITALS: BP 110/55; PULSE 61; RESP 18; TEMP 37.2; O2SAT 99
== END 2022-03-16 00:50 | disposition home or self-care (01) ==
PROVIDERS: Emergency Medicine; Emergency Provider Physician Assistant
DX: F41.9 Anxiety disorder, unspecified (principal)
CPT/HCPCS: 36415; 70450; 71045; 80053; 81025; 85025; 93005; 96372; 99284; J2060

== ENCOUNTER 2022-04-28 11:43 | Emergency (ER) | payer MEDICAID, SELFPAY ==
[2022-04-28 11:47] VITALS: BP 137/72; PULSE 61; RESP 16; TEMP 36.6; O2SAT 98; BMI 20.7
--- NOTE | 2022-04-28 11:58 | ED_ITS ---
HPI - General Adult General: Chief complaint: Urogenital-Female Stated complaint: urinating blood/side pain Time Seen by Provider: 04/28/22 11:53 History of Present Illness: Patient is a 21-year-old female with history of renal colic emergency with complaints of left side abdominal pain and passage of clots in the urine and hematuria. Patient says that she has been having symptoms since last night. For the last 4 hours while she was at work when she had 1 episode of emesis and feels sweaty. Patient had significant left-sided flank pain decided come to the emergency room for evaluation. Patient denies any fever, cough, runny nose, sore throat, chest pain, shortness breath, diarrhea melena medic easier. Patient denies any new vaginal discharge discharge or bleeding. Patient has no symptoms of dysuria. Last time patient had kidney stone was a year ago. Onset:yesterday night Duration:ongoing Location:home Severity:moderate Associated symptoms: Reports nausea and vomiting (+1 episode of emesis); Deny chest pain, dyspnea, rash or palpitations Review of Systems Const: Denies: fever(s) or chills Eyes: Denies: change in vision ENMT: Denies: mouth pain Card: Denies: chest pain or palpitations Resp: Denies: dyspnea or non-productive cough GI: Reports: abdominal pain (+L sided flank pain), nausea and vomiting (+1 episode of emesis); Denies: diarrhea : Reports: other (+hematuria and clots in the urine); Denies: dysuria Musc: Denies: extremity pain Skin/Breast: Denies: rash or new lesions Neuro: Denies: weakness in extremities Psych: Reports: other (Normal mood) Geronimo/Lymph: Denies: easy bruising PFS ED PFSH: Medical History Fibroadenoma Nephrolithiasis No pertinent past medical history neghx: htn,dm,thyroid,dvt/pe [facility]CP: [facility] Surgical History History of lumpectomy (~2015) Left breast-- fibroadenoma Family History Mother Hypertension Family/Other Ovarian cancer Maternal Great Aunt--dx age unknown Grandmother Thyroid disease Paternal Grandfather Heart disease Paternal Denies family history of Colon cancer Diabetes Hypercholesteremia Breast cancer Uterine cancer Stroke Social History Smoking and tobacco status: never smoked Alcohol intake: former Former alcohol use details: prior to Other details last substance use: marijuana last used beginning of 01/2021 Marital status: Single Female Reproductive History: Date of last menstrual period: 07/01/20 Physical Exam Const: COMMON NORMALS: alert HENMT: COMMON NORMALS: atraumatic HEAD & SCALP: atraumatic MOUTH: moist mucous membranes not abnormal Eye: COMMON NORMALS: EOMs intact bilaterally and conjunctivae normal CONJUNCTIVA: Yes conjunctivae normal Neck/C-Spine: COMMON NORMALS: full ROM and supple Resp: COMMON NORMALS: normal respiratory effort and clear to auscultation bilaterally AUSCULTATION: clear to auscultation bilaterally Cardio: COMMON NORMALS: regular rate RATE: regular rate GI: COMMON NORMALS: Soft to palpation PALPATION: Yes Soft to palpation OTHER: + Mild left flank tenderness palpation without CVA tenderness. NO guarding rebound, guarding, rigidity. Neg Nguyen/Neg McBurney's point tenderness, no suprabupic tenderness to palpation. Extremity: COMMON NORMALS: full ROM Neuro: SENSORIUM/ORIENTATION: Yes alert MOTOR EXAM: No Abnormal motor strength present and Other motor observations present (no focal motor deficits) Psych: COMMON NORMALS: speech normal SPEECH: Yes normal speech MOOD & AFFECT: Yes euthymic mood Course Vital Signs: Vital signs: Vital Signs Temperature 97.8 F 04/28/22 11:47 Pulse Rate 61 04/28/22 11:47 Respiratory Rate 16 04/28/22 11:47 Blood Pressure 137/72 04/28/22 11:47 Pulse Oximetry 98 04/28/22 11:47 Oxygen Delivery Me thod 04/28/22 11:47 [facility] - General Adult Medical Decision Making 21-year-old female with history of renal colic presenting to the emergency room complaints of moderate left flank tenderness palpation and hematuria with clots in the urine. On exam, patient is mild tenderness palpation in the left flank. No CVA tenderness. Patient is hemodynamically stable. In no acute distress. Lab work showed white count 12.4. UA is positive for blood and WBCs. CT abdomen pelvis did not show any signs of kidney stone. Suspect the patient may have UTI with possible early pyelonephritis. Patient at the present time is in no acute distress, has no complaints of pain. Patient received IVF and cefdinir in the ER. Rx cefdinir for UTI and early pyelonephritis Disposition: Discharge. Patient counseled regarding diagnostic impression, treatment plan. Patient given ED strict return precautions to return for continuation, worsening, or development of new symptoms. Instructed to f/u w/ PCP regarding symptoms today. Patient verbalized understanding. Lab Data : 04/28/22 12:15 04/28/22 12:15 Radiology Impressions Abdomen/Pelvis CT 04/28/22 12:48 IMPRESSION: . 1. No renal stone or obstruction or hydronephrosis. 2. Quality of this examination is significantly limited due to lack of body fat and noncontrast evaluation. 3. Diffuse marked constipation. 4. New 6 mm noncalcified LEFT lower lobe nodule. Likely postinflammatory in this age group. Laboratory Results WBC 12.4 10^3/uL (4.5-13.0) 04/28/22 12:15 RBC 4.55 10^6/uL (4.1-5.3) 04/28/22 12:15 Hgb 14.6 g/dL (11.5-15.3) 04/28/22 12:15 Hct 43.4 % (37.0-47.0) 04/28/22 12:15 MCV 95.4 fl (81-99) 04/28/22 12:15 MCH 32.1 pg (28.0-34.0) 04/28/22 12:15 MCHC 33.6 g/dL (30.0-36.0) 04/28/22 12:15 RDW 12.5 % (12.1-15.1) 04/28/22 12:15 Plt Count 251 10^3/cmm (130-400) 04/28/22 12:15 MPV 12.0 fL (7.4-10.4) H 04/28/22 12:15 Neut % (Auto) 77.6 % 04/28/22 12:15 Lymph % (Auto) 14.8 % 04/28/22 12:15 [place] % (Auto) 6.1 % 04/28/22 12:15 Eos % (Auto) 0.5 % 04/28/22 12:15 Baso % (Auto) 0.6 % 04/28/22 12:15 Neut # (Auto) 9.63 10^3/uL (1.8-8.0) H 04/28/22 12:15 Lymph # (Auto) 1.8 10^3/uL (1.5-6.5) 04/28/22 12:15 [place] # (Auto) 0.8 10^3/uL (0.2-0.9) 04/28/22 12:15 Eos # (Auto) 0.1 10^3/uL (0.0-0.8) 04/28/22 12:15 Baso # (Auto) 0.1 10^3/uL (0.0-0.1) 04/28/22 12:15 Nucleated RBC % (auto) 0 % 04/28/22 12:15 Nucleated RBCs # 0.0 /100WBC 04/28/22 12:15 Sodium 139 mmol/L (136-145) 04/28/22 12:15 Potassium 4.2 mmol/L (3.5-5.1) 04/28/22 12:15 Chloride 103 mmol/L (98-107) 04/28/22 12:15 Carbon Dioxide 27 mmol/L (22-29) 04/28/22 12:15 Anion Gap 13.2 (5-19) 04/28/22 12:15 BUN 13 mg/dL (6-20) 04/28/22 12:15 Creatinine 0.6 mg/dL (0.5-0.9) 04/28/22 12:15 GFR Calculation 127.5 mL/min (90-130) 04/28/22 12:15 Glucose 77 mg/dL (65-115) 04/28/22 12:15 Calculated Osmolality 287 mOsm/kg (285-295) 04/28/22 12:15 Calcium 9.5 mg/dL (8.5-10.5) 04/28/22 12:15 Total Bilirubin 0.4 mg/dL (0.15-1.2) 04/28/22 12:15 AST 13 U/L (0-32) 04/28/22 12:15 ALT 11 U/L (0-33) 04/28/22 12:15 Alkaline Phosphatase 99 IU/L (35-105) 04/28/22 12:15 Total Protein 7.0 g/dL (6.6-8.7) 04/28/22 12:15 Albumin 4.4 g/dL (3.5-5.2) 04/28/22 12:15 Globulin 2.6 g/dL (1.3-4.6) 04/28/22 12:15 Lipase 20 U/L (13-60) 04/28/22 12:15 Urine Color Yellow (Yellow) 04/28/22 12:15 Urine Appearance Clear (CLEAR) 04/28/22 12:15 Urine pH 6 (5-7) 04/28/22 12:15 Ur Specific [place] 1.020 (1.005-1.030) 04/28/22 12:15 Urine Protein 1+ (Negative) H 04/28/22 12:15 Urine Glucose (UA) Norm (Normal) 04/28/22 12:15 Urine Ketones Negative (Negative) 04/28/22 12:15 Urine Blood 3+ (Negative) H 04/28/22 12:15 Urine Nitrate Negative (Negative) 04/28/22 12:15 Urine Bilirubin Neg (Negative) 04/28/22 12:15 Urine Urobilinogen Norm mg/dL (Negative) 04/28/22 12:15 Ur Leukocyte Esterase 2+ (Negative) H 04/28/22 12:15 Urine RBC 10-15 /hpf (0-2) H 04/28/22 12:15 Urine WBC Too numerous to cnt /hpf (0-5) H 04/28/22 12:15 Ur Squamous Epith Cells 5-10 /hpf (0-5) H 04/28/22 12:15 Amorphous Sediment Not Reportable 04/28/22 12:15 Urine Bacteria None /hpf (NONE) 04/28/22 12:15 Urine HCG, Qual Negative (Negative) 04/28/22 12:15 Imaging Data Other Imaging: Radiologist's impression: [facility] [address] [place] [address] CT Scan Report Signed Patient: Joshua Sevilla Unit #: [id number] : 2000 Age/Sex: 21 / F ADM Date: 04/28/22 Loc: ER Room/Bed: Attending Dr: Ordering Provider/Ordering MD: Lucretia Holland MD Date of Service: 04/28/22 Procedure(s): CT abdomen pelvis wo con [id number] Accession Number(s): [id number] Report Number: [id number] WS: [id number] CT ABDOMEN AND PELVIS NONCONTRAST HISTORY: possible infected stone TECHNIQUE: Imaging performed through the abdomen and pelvis. Coronal and sagittal reformats are submitted.? All CT scans at [facility] use at least one of these dose optimization techniques: automated exposure control; mA and/or kV adjustment per patient size (includes targeted exams where dose is matched to clinical indication); or iterative reconstruction. ? DLP: 293.82 mGy.cm COMPARISON: 07/21/2020 Lower thorax: New 6 mm pulmonary nodule at the LEFT lung base. New since 07/21/2020. No pleural effusion. No cardiac enlargement. Liver: Normal size liver. No mass or bile duct dilatation. Gallbladder: Normal gallbladder. Pancreas: Poorly visualized. Spleen: Normal. Adrenal glands: Normal. No mass. Right kidney: Normal size kidney with no mass or hydronephrosis. Small extrarenal pelvis, similar to the prior examination. No renal calcification. Left kidney: Normal size kidney with no mass or hydronephrosis. No renal calcification. Aorta: Normal abdominal aorta, no aneurysm or atherosclerosis. No free fluid, intraperitoneal air or significant lymphadenopathy. GI tract: There is marked diffuse fecal retention and constipation throughout the entire colon. The appendix is not completely visualized but appears normal. Abdominal wall: Negative. No hernia. Pelvis: Normal. Osseous structures: Unremarkable. CT/CT abdomen pelvis con [id number] IMPRESSION: . ? 1.? No renal stone or obstruction or hydronephrosis. 2.? Quality of this examination is significantly limited due to lack of body fat and noncontrast evaluation. 3.? Diffuse marked constipation. 4.? New 6 mm noncalcified LEFT lower lobe nodule. Likely postinflammatory in this age group. ? Dictated By: Ayanna Perez DO Signed By: Ayanna Perez DO Signed Date/Time: 04/28/22 1345 DD/ 1334 Discharge Plan Discharge Patient Disposition: Home Clinical Impression: Pyelonephritis, UTI (urinary tract infection) Condition: Stable Prescriptions: New cefdinir 300 mg capsule 300 mg PO BID 10 Days Qty: 20 0RF Discharge Orders: Discharge ED (Routine); Ordered 04/28/22 Ordered By: Lucretia Holland Discharge Diet: Advance as tolerated Discharge Activity: Increase activity as tolerated Patient Instructions: Dysuria (ED) Activity Restrictions/Additional Instructions: Please take your antibiotics as instructed. Watch out for signs of skin changes/redness, mouth redness or swelling, nausea/vomiting, diarrhea, blood in the urine or any new or concering complaints. Please come back to the emergency room for any new or concerning complaints including flank pain, nausea/vomiting, abdominal, diarrhea melena, or any urinary complaints. Come back if you cannot hold down any food or drinks water. Come back if your pain worsens. Coding Level of Care Code ED Sales Consultant Residential Manager for Maeve Fwd Exam Comprehensive
[2022-04-28 12:25] LABS: Basophils # 0.1 10^3/uL (0.0-0.1); Basophils % 0.6 %; Eosinophils # 0.1 10^3/uL (0.0-0.8); Eosinophils % 0.5 %; Hematocrit 43.4 % (37.0-47.0); Hemoglobin 14.6 g/dL (11.5-15.3); Lymphocytes # 1.8 10^3/uL (1.5-6.5); Lymphocytes % 14.8 %; Mean Corpuscular HGB Conc 33.6 g/dL (30.0-36.0); Mean Corpuscular Hemoglobin 32.1 pg (28.0-34.0); Mean Corpuscular Volume 95.4 fl (81-99); Monocytes # 0.8 10^3/uL (0.2-0.9); Monocytes % 6.1 %; Neutrophils # 9.63 10^3/uL (1.8-8.0); Neutrophils % 77.6 %; Nucleated Red Blood Cells % 0 %; Platelet Count 251 10^3/cmm (130-400); Red Blood Count 4.55 10^6/uL (4.1-5.3); Red Cell Distribution Width 12.5 % (12.1-15.1); White Blood Count 12.4 10^3/uL (4.5-13.0)
[2022-04-28 12:38] LABS: Bilirubin Urine Neg (Negative); Blood Urine 3+ (Negative); Glucose Urine UA Norm (Normal); Ketones Urine Negative (Negative); Nitrate Urine Negative (Negative); Protein Urine 1+ (Negative); Urine Appearance Clear (CLEAR); Urine Color Yellow (Yellow); Urobilinogen Urine Norm (Negative); pH Urine 6 (5-7)
[2022-04-28 12:39] LABS: Add Urine Culture? Yes; Add Urine Microscopic? YES; Leukocyte Esterase Urine 2+ (Negative); WBC Urine TOO NUMEROUS TO CNT /hpf (0-5)
[2022-04-28 12:46] LABS: Alanine Aminotransferase 11 U/L (0-33); Albumin Level 4.4 g/dL (3.5-5.2); Alkaline Phosphatase 99 IU/L (35-105); Anion Gap 13.2 (5-19); Aspartate Amino Transferase 13 U/L (0-32); Blood Urea Nitrogen 13 mg/dL (6-20); Calcium 9.5 mg/dL (8.5-10.5); Carbon Dioxide 27 mmol/L (22-29); Chloride 103 mmol/L (98-107); Globulin 2.6 g/dL (1.3-4.6); Glomerular Filtration Rate 127.5 mL/min (90-130); Glucose 77 mg/dL (65-115); Lipase 20 U/L (13-60); Osmolality Calculated 287 mOsm/kg (285-295); Potassium 4.2 mmol/L (3.5-5.1); Sodium 139 mmol/L (136-145); Total Bilirubin 0.4 mg/dL (0.15-1.2)
[2022-04-28 12:48] LABS: Slide Review Slide Review Perform
--- NOTE | 2022-04-28 12:48 | CT_ITS ---
WS: [id number] CT ABDOMEN AND PELVIS NONCONTRAST HISTORY: possible infected stone TECHNIQUE: Imaging performed through the abdomen and pelvis. Coronal and sagittal reformats are submi tted. All CT scans at [facility] use at least one of these dose optimization techniques: auto mated exposure control; mA and/or kV adjustment per patient size (includes targeted exams where dose is matched to clinical indication); or iterative reconstruction. DLP: 293.82 mGy.cm COMPARISON: 07/21/2020 Lower thorax: New 6 mm pulmonary nodule at the LEFT lung base. New since 07/21/2020. No pleural effusi on. No cardiac enlargement. Liver: Normal size liver. No mass or bile duct dilatation. Gallbladder: Normal gallbladder. Pancreas: Poorly visualized. Spleen: Normal. Adrenal glands: Normal. No mass. Right kidney: Normal size kidney with no mass or hydronephrosis. Small extrarenal pelvis, similar to the prior examination. No renal calcification. Left kidney: Normal size kidney with no mass or hydronephrosis. No renal calcification. Aorta: Normal abdominal aorta, no aneurysm or atherosclerosis. No free fluid, intraperitoneal air or significant lymphadenopathy. GI tract: There is marked diffuse fecal retention and constipation throughout the entire colon. The a ppendix is not completely visualized but appears normal. Abdominal wall: Negative. No hernia. Pelvis: Normal. Osseous structures: Unremarkable. CT/CT abdomen pelvis wo con [id number] IMPRESSION: . 1. No renal stone or obstruction or hydronephrosis. 2. Quality of this examination is significantly limited due to lack of body fa t and noncontrast evaluation. 3. Diffuse marked constipation. 4. New 6 mm noncalcified LEFT lower lobe nodule. Likely postinflammatory in th is age group.
[2022-04-28] MEDS: acetaminophen 500 mg Tablet PO (13:38)
[2022-04-28] MEDS: cefdinir 300 MG CAPSULE PO (14:04)
[2022-04-28 14:07] VITALS: PULSE 82; RESP 14; O2SAT 98
== END 2022-04-28 14:09 | disposition home or self-care (01) ==
PROVIDERS: Emergency Provider Emergency Medicine
DX: N39.0 Urinary tract infection, site not specified (principal); N12 Tubulo-interstitial nephritis, not specified as acute or chronic
CPT/HCPCS: 74176; 80053; 81001; 81025; 83690; 85025; 87077; 87086; 87186; 99285

== ENCOUNTER → 2022-08-24 12:13 | Outpatient (BNVA) | payer MEDICAID, SELFPAY | PROVIDERS: Visit Provider Family Medicine | DX: E04.9 Nontoxic goiter, unspecified (principal); Z30.9 Encounter for contraceptive management, unspecified; D24.9 Benign neoplasm of unspecified breast | CPT/HCPCS: 80053; 84443; 85025 ==

== ENCOUNTER 2022-11-15 12:01 | Emergency (ER) | payer MEDICAID, SELFPAY ==
[2022-11-15 12:11] VITALS: BP 122/82; PULSE 95; RESP 14; O2SAT 99; BMI 18.8
[2022-11-15 12:17] VITALS: BP 105/66; RESP 18; O2SAT 98
--- NOTE | 2022-11-15 12:33 | XRR_ITS ---
PROCEDURE INFORMATION: Exam: XR Right Wrist Exam date and time: 11/15/2022 12:52 PM Age: 22 years old Clinical indication: Injury or trauma; Other: PT reports she does not remember; Additional info: Swelling, pain, unknown cause (intoxication last night) TECHNIQUE: Imaging protocol: Radiologic exam of the right wrist. Views: 3 or more views. COMPARISON: No relevant prior studies available. FINDINGS: Bones/joints: Negative for acute bony abnormality. Soft tissues: Normal. XR/XR wrist RT min 3V* [id number] IMPRESSION: No acute findings.
--- NOTE | 2022-11-15 13:57 | W.ED.EXTPRO ---
HPI - Extremity Problem General: Chief complaint: Extremity Injury, Upper Stated complaint: Arm injury Time Seen by Provider: 11/15/22 12:15 Source: patient Mode of arrival: ambulatory Limitations: no limitations History of Present Illness: Patient presents emergency department today for evaluation treatment of bruising, swelling, pain to her right wrist and hand. She reports she was intoxicated last night and has no idea what could have happened. She states she woke up approximately 4 AM and noticed the onset of pain and discomfort. Patient also has bruising and abrasion to her right upper lip. Patient denies any other pains currently and has not noticed any neurological deficit. She has been tolerating fluids without vomiting. Review of Systems General: Reports: 10 or more systems reviewed and unremarkable except in HPI and below Musc: Reports: extremity pain, extremity swelling, joint pain and joint swelling Neuro: Denies: numbness in extremities, weakness in extremities, lack of coordination, difficulty walking, dizziness, confusion, Slurred speech present or difficulty communicating thoughts PFSH ED PFSH: Medical History Fibroadenoma Nephrolithiasis Psychiatric care Surgical History History of lumpectomy (~2015) Left breast-- fibroadenoma Family History Mother Hypertension Family/Other Ovarian cancer Maternal Great Aunt--dx age unknown Grandmother Thyroid disease Paternal Grandfather Heart disease Paternal Other Dementia Lung disease Psychiatric illness Denies family history of Colon cancer Diabetes CAD (coronary artery disease) Clotting disorder Hypercholesteremia Hyperlipidemia Chronic kidney disease (CKD) Breast cancer Anesthesia complication Bleeding disorder Uterine cancer Stroke Social History Smoking and tobacco status: current every day smoker e-cigarettes E-Cigarette Details: vaporizer device Alcohol intake: former Former alcohol use details: prior to Other details last substance use: marijuana last used beginning of 01/2021 Lives independently: Yes Marital status: Single Number of children: 1 Current occupational status: employed Current occupation: [employer] Current gender identity: Female Female Reproductive History: Para: 1 Physical Exam Const: COMMON NORMALS: no acute distress, patient oriented x3 and alert HENMT: COMMON NORMALS: normocephalic, atraumatic and hearing grossly normal bilaterally HEAD & SCALP: normocephalic and atraumatic MOUTH: lip abnormal (Bruising and mild swelling to right upper lip with mild abrasion to interco) Eye: COMMON NORMALS: Equal, round and reactive pupils present, EOMs intact bilaterally and conjunctivae normal CONJUNCTIVA: Yes conjunctivae normal PUPIL: Yes Equal, round and reactive pupils present Neck/C-Spine: COMMON NORMALS: full ROM and no JVD Lymph: LYMPHATIC: no lymphadenopathy noted Resp: COMMON NORMALS: normal respiratory effort, No retractions and No use of accessory muscles Cardio: COMMON NORMALS: no JVD and regular rate RATE: regular rate Extremity: NARRATIVE EXTREMITY EXAM: Patient has large area of bruising noted to the right anterior lateral/distal radial region. She also has similar bruising noted to the dorsum of the hand along the fourth and fifth metacarpal regions. Patient has pain with movement of her right wrist radiating up into the forearm but is able to move her fingers. Nontender to palpation or with mobility at the right elbow. Neuro: COMMON NORMALS: patient oriented x3 SENSORIUM/ORIENTATION: Yes alert Psych: COMMON NORMALS: mental status grossly normal, Normal thought process present, cooperative and normal affect THOUGHT PROCESS: Normal thought process present Skin: COMMON NORMALS: no rashes or lesions noted and turgor normal GENERAL SKIN EXAM: no rashes or lesions noted and turgor normal Course Vital Signs: Vital signs: Vital Signs Pulse Rate 95 11/15/22 12:11 Respiratory Rate 18 11/15/22 12:17 Blood Pressure 105/66 11/15/22 12:17 Pulse Oximetry 98 11/15/22 12:17 Oxygen Delivery Me thod 11/15/22 12:11 MDM - Extremity (Nontraumatic) Medical Decision Making Patient presents today for evaluation treatment of injury sustained to the right upper extremity from unknown cause. Patient's x-rays are negative but she does have obvious signs of injury including contusions and swelling noted to the right wrist and hand. Patient also has swelling and bruising of her right upper lip but, no signs of any other facial bone tenderness and no signs of underlying dental injury. Patient is still somewhat hung over so is difficult to determine whether or not she is having headache or symptoms of concussion but, head appears normocephalic without any acute concerns. Still, she is to hydrate and rest and see if she continues to have symptoms or, if her symptoms change or worsen concerning for head injury. She is also to be seen and reevaluated again if she develops any other areas of pain, bruising, or injury. Patient was given naproxen here in the ER as she is driving. She was put into a wrist brace with instructions for at home RICE care. Patient was given a prescription for cyclobenzaprine and naproxen with warnings about sedate of side effect of muscle relaxer for which she should not be drinking alcohol. DDx: Wrist fracture, wrist sprain, skin abrasion, skin contusion, hematoma, carpal fracture, metacarpal fracture, concussion, dental injury, lip contusion, lip laceration Lab Data Radiology Impressions Wrist X-Ray 11/15/22 12:33 IMPRESSION: No acute findings. Discharge Plan Discharge Patient Disposition: Home Clinical Impression: Right wrist sprain, Contusion of right wrist, Contusion of lip, initial encounter Condition: Stable Prescriptions: New cyclobenzaprine 10 mg tablet 10 mg PO TID Qty: 14 0RF naproxen 500 mg tablet 500 mg PO BID PRN (Reason: pain) Qty: 20 0RF No Action medroxyprogesterone [Depo-Provera] 150 mg/mL syringe 150 mg IM .q 3 months Qty: 1 4RF Discharge Orders: Discharge ED (Routine); Ordered 11/15/22 Ordered By: Daiana Asencio Discharge Diet: Usual diet Discharge Activity: Limit activity as instructed Patient Instructions: Contusion, Wrist Sprain (ED), Facial Contusion (ED) Activity Restrictions/Additional Instructions: X-ray today shows no signs of any acute fracture. However, you do have extensive amount of swelling and bruising secondary to unknown injury. For that reason I am going to put you in a wrist brace and encourage you to wear this anytime you are up and active through the day for 1 week. I also encourage you to apply ice for 15 to 20 minutes, multiple times throughout the day for another week or so. I have prescribed you some medication to help with swelling and pain but, you should not be driving, working, or drinking any alcohol while taking cyclobenzaprine as this will enhance the sedating side effects and can make you very drowsy. If you still have issues with pain without noticeable improvement of your injuries after 5 to 7 days we do recommend being seen and reevaluated again. Coding Level of Care Code ED Case Management Social Worker for Maeve Cheek
[2022-11-15] MEDS: naproxen 500 mg Tablet PO (14:14)
== END 2022-11-15 14:17 | disposition home or self-care (01) ==
PROVIDERS: Emergency Provider Physician Assistant
DX: S63.501A Unspecified sprain of right wrist, initial encounter (principal); S60.211A Contusion of right wrist, initial encounter; S00.531A Contusion of lip, initial encounter; F17.290 Nicotine dependence, other tobacco product, uncomplicated; X58.XXXA Exposure to other specified factors, initial encounter
CPT/HCPCS: 73110; 99283

== ENCOUNTER 2023-09-24 08:21 | Emergency (ER) | payer MEDICAID, SELFPAY ==
--- NOTE | 2023-09-24 09:08 | XRR_ITS ---
PROCEDURE INFORMATION: Exam: XR Chest Exam date and time: 09/24/2023 9:13 AM Age: 22 years old Clinical indication: Cough and fever; Additional info: Cough, fevers TECHNIQUE: Imaging protocol: Radiologic exam of the chest. Views: 1 view. COMPARISON: CR XR chest 1V portable [id number] 03/15/2022 10:43 PM FINDINGS: Lungs: Unremarkable. No consolidation. Pleural spaces: Unremarkable. No pleural effusion. No pneumothorax. Heart/Mediastinum: Unremarkable. No cardiomegaly. Bones/joints: Unremarkable. XR/XR chest 1V portable [id number] IMPRESSION: No acute findings.
--- NOTE | 2023-09-24 09:08 | W.ED.URI ---
HPI - URI/Sore Throat General: Chief Complaint: Upper Respiratory Infection Stated Complaint: cough, fever, congestion Time Seen by Provider: 09/24/23 08:56 Source: patient Mode of arrival: ambulatory Limitations: no limitations History of Present Illness: Patient is a 22-year-old female presents to ED today along with her daughter who is also being seen for same symptoms here for complaints of cough, congestion, and fevers. She states she has been sick for several days now. She states she was seen at a walk-in clinic and was not tested for anything but was diagnosed with bacterial bronchitis and placed on doxycycline, albuterol, and steroids. She does not feel like she is improving. She states since that visit she has now started to run fevers. She feels like her ribs hurt from coughing so much. She states her daughter began getting sick yesterday with similar symptoms. MD elicited complaint: fever, cough, rhinorrhea and nasal congestion Onset (ago): day(s) Consistency: constant Severity: moderate Description of mucous: clear Able to tolerate fluids by mouth: Yes Exacerbating factors: other (coughing) Relieving factors: nothing Context: sick contacts (daughter) Associated symptoms: Reports fever(s), nasal congestion and sinus pain; Deny abdominal pain, chills, chest pain, diarrhea, ear or mastoid pain, headache(s), nausea or vomiting Treatments prior to arrival: antibiotics Review of Systems Const: Reports: fever(s); Denies: chills, body aches or fatigue Eyes: Denies: change in vision, blurry vision, photophobia, eye discomfort or eye discharge ENMT: Reports: nasal congestion and sinus pain; Denies: throat pain, odynophagia or ear or mastoid pain Card: Denies: chest pain Resp: Reports: productive cough and chest congestion; Denies: dyspnea, non-productive cough, wheezing or hemoptysis GI: Denies: abdominal pain, nausea, vomiting or diarrhea Musc: Denies: neck pain, back pain, extremity pain or joint pain Skin/Breast: Denies: rash Neuro: Denies: headache(s) All/Imm: Denies: facial swelling or seasonal rhinorrhea PFSH ED PFSH: Medical History Fibroadenoma Nephrolithiasis Surgical History History of lumpectomy (~2015) Left breast-- fibroadenoma Family History Mother Hypertension Family/Other Ovarian cancer Maternal Great Aunt--dx age unknown Grandmother Thyroid disease Paternal Grandfather Heart disease Paternal Other Dementia Lung disease Psychiatric illness Denies family history of Colon cancer Diabetes CAD (coronary artery disease) Clotting disorder Hypercholesteremia Hyperlipidemia Chronic kidney disease (CKD) Breast cancer Anesthesia complication Bleeding disorder Uterine cancer Stroke Social History Smoking and tobacco/nicotine status: current every day tobacco/nicotine user e-cigarettes E-Cigarette Details: vaporizer device Alcohol intake: former Former alcohol use details: prior to Substance/Drug Use: current Lives independently: Yes Marital status: Single Number of children: 1 Current occupational status: employed Current occupation: [employer] Current gender identity: Female Female Reproductive History: Para: 1 Physical Exam Const: COMMON NORMALS: no acute distress, average body habitus, patient oriented x3, no limitations, healthy appearing, alert and well nourished GENERAL APPEARANCE: cooperative HENMT: COMMON NORMALS: normocephalic, atraumatic, hearing grossly normal bilaterally, external ears normal, EAC's normal, TM's normal bilaterally, Normal external nose present, Normal nasal mucous membranes and turbinates present, moist oral mucous membranes and oropharynx normal HEAD & SCALP: normal to inspection, normocephalic and atraumatic FACE & SINUS: normal facial exam and sinuses nontender NOSE: Normal external nose present and Normal nasal mucous membranes and turbinates present EXTERNAL EAR: Yes external ears normal EXTERNAL AUDITORY CANAL: EAC's normal TYMPANIC MEMBRANE: TM's normal bilaterally MOUTH: Normal oral and palatal mucosa present, lip normal, tongue normal and Normal salivary glands and ducts present THROAT: posterior oropharynx normal, tonsils normal and uvula midline Eye: COMMON NORMALS: Equal, round and reactive pupils present, EOMs intact bilaterally and conjunctivae normal CONJUNCTIVA: Yes conjunctivae normal PUPIL: Yes Equal, round and reactive pupils present Neck/C-Spine: COMMON NORMALS: no lymphadenopathy Resp: COMMON NORMALS: normal respiratory effort and clear to auscultation bilaterally AUSCULTATION: clear to auscultation bilaterally OTHER: course sounding cough noted Cardio: COMMON NORMALS: regular rate and regular rhythm RATE: regular rate RHYTHM: regular rhythm Extremity: COMMON NORMALS: normal to inspection, no clubbing, cyanosis or edema and no calf tenderness GENERAL: Yes normal exam except as noted Neuro: COMMON NORMALS: patient oriented x3 SENSORIUM/ORIENTATION: Yes alert Skin: COMMON NORMALS: no rashes or lesions noted GENERAL SKIN EXAM: no rashes or lesions noted Course Vital Signs: Vital signs: Vital Signs Temperature 98.7 F 09/24/23 09:09 Pulse Rate 97 09/24/23 09:09 Respiratory Rate 18 09/24/23 09:09 Blood Pressure 121/79 09/24/23 09:09 Pulse Oximetry 94 09/24/23 09:09 Oxygen Delivery Me thod Room Air 09/24/23 09:09 MDM - URI/Sore Throat Medical Decision Making Patient appears in no acute distress. Her vital signs are perfect. CXR is normal. Respiratory panel collected and pending. She will be called later today for any positive results. She can continue medications that she was previously prescribed although I highly suspect her illness is viral. Medical Records I reviewed the patient's medical records. XR interpretation done by ED provider, pending radiology final review Discharge Plan Discharge Patient Disposition: Home Clinical Impression: Viral upper respiratory tract infection with cough Condition: Stable Prescriptions: No Action doxycycline hyclate 100 mg tablet 100 mg PO BID 7 Days Qty: 14 0RF prednisone 20 mg tablet 40 mg PO DAILY 5 Days Qty: 10 0RF albuterol sulfate [Ventolin HFA] 90 mcg/actuation HFA aerosol inhaler 2 puff inhalation Q4H PRN (Reason: shortness of breath or wheezing) Qty: 8.5 0RF medroxyprogesterone [Depo-Provera] 150 mg/mL syringe 150 mg IM ONCE Qty: 1 3RF Discharge Orders: Discharge ED (Routine); Ordered 09/24/23 Ordered By: Morelia Hatch Activity Restrictions/Additional Instructions: Chest x-ray today was normal. As we discussed I will contact you later today IF your respiratory panel or your daughter's respiratory panel comes back positive for anything. Coding Level of Care Code ED Feed Weigher for Maeve Cheek
[2023-09-24 09:09] VITALS: BP 121/79; PULSE 97; RESP 18; TEMP 37.1; O2SAT 94
[2023-09-24 11:10] LABS: Adenovirus Not Detected (NOT DETECT); Chlamydia Pneumoniae Not Detected (NOT DETECT); Coronavirus 229E,HKU1,NL63,OC4 Not Detected (NOT DETECT); Human Metapneumovirus Not Detected (NOT DETECT); Human Rhinovirus/Enterovirus Not Detected (NOT DETECT); Influenza A Not Detected (NOT DETECT); Influenza A H1 Not Detected (NOT DETECT); Influenza A H1-2009 Not Detected (NOT DETECT); Influenza A H3 Not Detected (NOT DETECT); Influenza B Detected (NOT DETECT); Mycoplasma Pneumoniae Not Detected (NOT DETECT); Parainfluenza Virus Type 1 Not Detected (NOT DETECT); Parainfluenza Virus Type 2 Not Detected (NOT DETECT); Parainfluenza Virus Type 3 Not Detected (NOT DETECT); Parainfluenza Virus Type 4 Not Detected (NOT DETECT); Respiratory Syncytial Virus A Not Detected (NOT DETECT); Respiratory Syncytial Virus B Not Detected (NOT DETECT); SARS-COV-2 Not Detected (NOT DETECT)
== END 2023-09-24 09:28 | disposition home or self-care (01) ==
PROVIDERS: Emergency Provider Physician Assistant
DX: J06.9 Acute upper respiratory infection, unspecified (principal); R05.9 Cough, unspecified; F17.290 Nicotine dependence, other tobacco product, uncomplicated
CPT/HCPCS: 71045; 87486; 87581; 87633; 99283

== ENCOUNTER → 2024-10-15 14:40 | Outpatient (BNVA) | payer MEDICAID, SELFPAY | PROVIDERS: Visit Provider Emergency Medicine | DX: R05.9 Cough, unspecified (principal) | CPT/HCPCS: 87400 ==

== ENCOUNTER 2024-10-19 05:06 | Emergency (ER) | payer MEDICAID, SELFPAY ==
[2024-10-19 05:13] VITALS: BP 92/76; PULSE 58; RESP 16; TEMP 36.8; O2SAT 98; BMI 23.6
--- NOTE | 2024-10-19 05:25 | W.ED.DENTAL ---
HPI - Dental/Oral General: Chief complaint: Dental/Oral Stated complaint: Tooth Pain Time Seen by Provider: 10/19/24 05:21 History of Present Illness: Patient presents to the ER with dental pain swelling on her right lower canine area. She says she saw a dentist about 2 months ago and she knows she needs a pulled the gave her antibiotics had felt better for a while but the last for 5 days been acting up again she cannot make it back to her dentist because no one around her takes her insurance. Related Data Previous Rx's Medication Instructions Recorded albuterol sulfate 90 mcg/actuation 2 puff inhalation Q4H PRN 09/21/23 aerosol inhaler (Ventolin HFA) shortness of breath or wheezing #8.5 grams medroxyprogesterone 150 mg/mL See Rx Instructions .Route 10/09/24 intramuscular suspension .COMPLEX #1 mL amoxicillin 875 mg-potassium 1 tab PO Q12H #20 tabs 10/19/24 clavulanate 125 mg tablet tramadol 50 mg tablet 50 mg PO Q6H PRN pain #14 tabs 10/19/24 Allergies Allergy/AdvReac Type Severity Reaction Status Date / Time No Known Allergies Allergy Verified 10/19/24 05:20 Review of Systems General: Reports: 10 or more systems reviewed and unremarkable except in HPI and below PFSH ED PFSH: Medical History Fibroadenoma Nephrolithiasis Surgical History History of lumpectomy (~2015) Left breast-- fibroadenoma Family History Mother Hypertension Family/Other Ovarian cancer Maternal Great Aunt--dx age unknown Grandmother Thyroid disease Paternal Grandfather Heart disease Paternal Other Dementia Lung disease Psychiatric illness Denies family history of Colon cancer Diabetes CAD (coronary artery disease) Clotting disorder Hypercholesteremia Hyperlipidemia Chronic kidney disease (CKD) Breast cancer Anesthesia complication Bleeding disorder Uterine cancer Stroke Social History Smoking and tobacco/nicotine status: current every day tobacco/nicotine user (vapes ) e-cigarettes E-Cigarette Details: vaporizer device Alcohol intake: former Former alcohol use details: prior to Substance/Drug Use: current Lives independently: Yes Marital status: Single Number of children: 1 Current occupational status: employed Current occupation: [employer] Current gender identity: Female Female Reproductive History: Date of last menstrual period: 05/05/23 Para: 1 Physical Exam Const: COMMON NORMALS: no acute distress, average body habitus, patient oriented x3, no limitations, healthy appearing, alert and well nourished HENMT: COMMON NORMALS: normocephalic, atraumatic, hearing grossly normal bilaterally, external ears normal, Normal external nose present and moist oral mucous membranes; dentition not normal (Dental pain over right canine, dental caries noted) HEAD & SCALP: normocephalic and atraumatic NOSE: Normal external nose present EXTERNAL EAR: Yes external ears normal Neck/C-Spine: COMMON NORMALS: full ROM, supple, no meningeal signs, no JVD and Thyroid normal; negative for no lymphadenopathy (Right anterior cervical lymphadenopathy) THYROID: Thyroid normal Chest: COMMONS NORMALS: normal inspection of the chest and normal palpation of entire chest wall Resp: COMMON NORMALS: normal respiratory effort, No retractions, No use of accessory muscles and clear to auscultation bilaterally AUSCULTATION: clear to auscultation bilaterally Cardio: COMMON NORMALS: no JVD, regular rate, regular rhythm, S1 normal heart sound present, S2 normal heart sound present, No gallops present (Cardio), No clicks present (Cardio), No murmurs present (Cardio) and No rub (Cardio) RATE: regular rate RHYTHM: regular rhythm HEART SOUNDS: S1 normal heart sound present and S2 normal heart sound present Neuro: COMMON NORMALS: patient oriented x3 SENSORIUM/ORIENTATION: Yes alert MENINGEAL SIGNS: Yes no meningeal signs Course Vital Signs: Vital signs: Vital Signs Temperature 98.2 F 10/19/24 05:13 Pulse Rate 58 L 10/19/24 05:13 Respiratory Rate 16 10/19/24 05:13 Blood Pressure 92/76 10/19/24 05:13 Pulse Oximetry 98 10/19/24 05:13 Oxygen Delivery Me thod Room Air 10/19/24 05:13 MDM - Dental/Oral Medical Decision Making Patient has dental pain probably from infection. Patient was given Augmentin and tramadol in ER and will be sent home with a prescription for when she was instructed to follow-up with a dentist for definitive treatment. Medical Records I reviewed the patient's medical records. Lab Data I reviewed the patient's lab results. No radiology studies performed this visit Discharge Plan Discharge Patient Disposition: Home Clinical Impression: Toothache Condition: Stable Prescriptions: New amoxicillin-pot clavulanate 875-125 mg tablet 1 tab PO Q12H Qty: 20 0RF tramadol 50 mg tablet 50 mg PO Q6H PRN (Reason: pain) Qty: 14 0RF No Action albuterol sulfate [Ventolin HFA] 90 mcg/actuation HFA aerosol inhaler 2 puff inhalation Q4H PRN (Reason: shortness of breath or wheezing) Qty: 8.5 0RF medroxyprogesterone 150 mg/mL suspension See Rx Instructions .ROUTE .COMPLEX Qty: 1 0RF Dose Instruction: INJECT 150MG(1ML) INTRAMUSCULARLY ONCE FOR CONTRACEPTION,ABNORMAL UTERINE BLEEDING, ENDOMETRIOSIS Rx Instructions: INJECT 150MG(1ML) INTRAMUSCULARLY ONCE FOR CONTRACEPTION,ABNORMAL UTERINE BLEEDING, ENDOMETRIOSIS Discharge Orders: Discharge ED (Routine); Ordered 10/19/24 Ordered By: Gagan Peterson Patient Instructions: Opioid Safety, Pain Management, Toothache (ED) Activity Restrictions/Additional Instructions: Antibiotics and pain medicine has been sent to your pharmacy. Please pick these up and take these as directed. Please follow-up with your dentist for definitive treatment. Coding Level of Care Code ED Supervisor Contingents for Maeve hCeek
[2024-10-19] MEDS: amoxicillin-clav 875-125 mg Tablet 1 TAB PO (05:31)
[2024-10-19] MEDS: TRAMadol 50 mg Tablet PO (05:32)
[2024-10-19 05:36] VITALS: BP 127/95; PULSE 67; O2SAT 97
== END 2024-10-19 05:38 | disposition home or self-care (01) ==
PROVIDERS: Emergency Provider Emergency Medicine
DX: K08.89 Other specified disorders of teeth and supporting structures (principal); F17.290 Nicotine dependence, other tobacco product, uncomplicated
CPT/HCPCS: 99283

== ENCOUNTER 2024-10-19 15:44 | Emergency (ER) | payer MEDICAID, SELFPAY ==
[2024-10-19 16:11] VITALS: BP 120/73; PULSE 75; RESP 17; TEMP 36.8; O2SAT 98; BMI 23.6
--- NOTE | 2024-10-19 16:18 | ED_ITS ---
HPI - Dental/Oral 2 General: Chief complaint: Dental/Oral Stated complaint: right side mouth pain Time Seen by Provider: 10/19/24 15:47 Source: patient Mode of arrival: ambulatory Limitations: no limitations History of Present Illness: Patient is a 23-year-old female who presents to ED today for worsening facial swelling related to a dental infection. Patient was seen here earlier today/early yesterday morning and was placed on antibiotics and given tramadol for pain. She has had one dose of this antibiotic. She states her facial swelling is worse. She is not having any difficulty controlling her saliva or swallowing. No difficulty breathing. No fevers. She arrives in no acute distress with stable vital signs. She first noticed swelling starting yesterday. MD Complaint: tooth pain Teeth map: 1. Onset (ago): day(s) Duration: constant Severity: moderate Relieving factors: nothing Exacerbating factors: nothing Context: history of dental caries and poor dental care Associated symptoms: Reports no associated symptoms; Denies ear or mastoid pain, fever(s) or odynophagia Treatment prior to arrival: none Related Data Previous Rx's Medication Instructions Recorded albuterol sulfate 90 mcg/actuation 2 puff inhalation Q4H PRN 09/21/23 aerosol inhaler (Ventolin HFA) shortness of breath or wheezing #8.5 grams medroxyprogesterone 150 mg/mL See Rx Instructions .Route 10/09/24 intramuscular suspension .COMPLEX #1 mL amoxicillin 875 mg-potassium 1 tab PO Q12H #20 tabs 10/19/24 clavulanate 125 mg tablet tramadol 50 mg tablet 50 mg PO Q6H PRN pain #14 tabs 10/19/24 Allergies Allergy/AdvReac Type Severity Reaction Status Date / Time No Known Allergies Allergy Verified 10/19/24 05:20 Review of Systems 2 Const: Denies: fever(s), chills, body aches, fatigue or malaise ENMT: Reports: dental pain; Denies: throat pain, uvular edema, enlarged tonsils, odynophagia, hoarseness, swelling of lips/tongue, oral sores, bleeding gums or ear or mastoid pain Musc: Denies: neck pain Neuro: Denies: headache(s) PFSH ED 2 PFSH: Medical History Fibroadenoma Nephrolithiasis Surgical History History of lumpectomy (~2016) Left breast-- fibroadenoma Family History Mother Hypertension Family/Other Ovarian cancer Maternal Great Aunt--dx age unknown Grandmother Thyroid disease Paternal Grandfather Heart disease Paternal Other Dementia Lung disease Psychiatric illness Denies family history of Colon cancer Diabetes CAD (coronary artery disease) Clotting disorder Hypercholesteremia Hyperlipidemia Chronic kidney disease (CKD) Breast cancer Anesthesia complication Bleeding disorder Uterine cancer Stroke Social History Smoking and tobacco/nicotine status: current every day tobacco/nicotine user (vapes ) e-cigarettes E-Cigarette Details: vaporizer device Alcohol intake: former Former alcohol use details: prior to Substance/Drug Use: current Lives independently: Yes Marital status: Single Number of children: 1 Current occupational status: employed Current occupation: [employer] Current gender identity: Female Female Reproductive History: Para: 1 Physical Exam 2 Const: COMMON NORMALS: no acute distress, average body habitus, patient oriented x3, no limitations, healthy appearing, alert and well nourished G ENERAL APPEARANCE: cooperative ORIENTATION/CONSCIOUSNESS: Yes awake, Yes oriented to person, Yes oriented to place and Yes oriented to time HENMT: COMMON NORMALS: normocephalic, atraumatic and Normal external nose present HEAD & SCALP: normal to inspection, normocephalic and atraumatic F MILLIE & SINUS: edema FACE & SINUS IMAGES: 1. does not extend into submandibular/sublingual spaces NOSE: Normal external nose present MOUTH: Normal oral and palatal mucosa present and lip normal TEETH & GINGIVA: Yes caries TEETH & GINGIVA IMAGES: 1. gingival edema/induration but no fluctuance at this point to suggest drainable abscess THROAT: posterior oropharynx normal and tonsils normal; no uvular edema Neck/C-Spine: COMMON NORMALS: full ROM GENERAL: Yes normal visual inspection, No anterior neck swelling and No submandibular swelling Neuro: COMMON NORMALS: patient oriented x3 SENSORIUM/ORIENTATION: Yes alert, Yes oriented to person, Yes oriented to place and Yes oriented to time Course 2 Vital Signs: Vital signs: Vital Signs Temperature 98.3 F 10/19/24 16:11 Pulse Rate 75 10/19/24 16:11 Respiratory Rate 17 10/19/24 16:11 Blood Pressure 120/73 10/19/24 16:11 Pulse Oximetry 98 10/19/24 16:11 Oxygen Delivery Me thod Room Air 10/19/24 16:11 MDM - Dental/Oral Medical Decision Making At this point patient has only had one dose of oral antibiotics. She was able to schedule a dentist appointment in [place] for Wednesday. She was given IM Penicillin G/Rocephin and will be encouraged to continue her oral antibiotics. Strict return precautions discussed. Differential Diagnosis Likely gingival abscess, dental caries and dental abscess No radiology studies performed this visit Discharge Plan Discharge Patient Disposition: Home Clinical Impression: Toothache, Dental caries, Dental abscess Condition: Stable Prescriptions: No Action albuterol sulfate [Ventolin HFA] 90 mcg/actuation HFA aerosol inhaler 2 puff inhalation Q4H PRN (Reason: shortness of breath or wheezing) Qty: 8.5 0RF medroxyprogesterone 150 mg/mL suspension See Rx Instructions .ROUTE .COMPLEX Qty: 1 0RF Dose Instruction: INJECT 150MG(1ML) INTRAMUSCULARLY ONCE FOR CONTRACEPTION,ABNORMAL UTERINE BLEEDING, ENDOMETRIOSIS Rx Instructions: INJECT 150MG(1ML) INTRAMUSCULARLY ONCE FOR CONTRACEPTION,ABNORMAL UTERINE BLEEDING, ENDOMETRIOSIS amoxicillin-pot clavulanate 875-125 mg tablet 1 tab PO Q12H Qty: 20 0RF tramadol 50 mg tablet 50 mg PO Q6H PRN (Reason: pain) Qty: 14 0RF Discharge Orders: Discharge ED (Routine); Ordered 10/19/24 Ordered By: Morelia Hatch Activity Restrictions/Additional Instructions: As we discussed, please follow-up with your dentist on Wednesday as scheduled. You need to return to the emergency department for worsening swelling or pain, difficulty controlling your saliva/drooling, difficulty swallowing, any difficulty breathing, or any other concerns you may have. Coding Level of Care Code ED Hog Cooler for Maeve Cheek
[2024-10-19] MEDS: penicillin g (L-A) 1,200,000 unit/2 mL Syr 1200000 UNIT IM (16:36)
[2024-10-19] MEDS: cefTRIAXone 1,000 MG in water for injection-sterile 2.1 ML 999 MG IM (16:36)
== END 2024-10-19 17:04 | disposition home or self-care (01) ==
PROVIDERS: Emergency Provider Physician Assistant
DX: K08.89 Other specified disorders of teeth and supporting structures (principal); K02.9 Dental caries, unspecified; K04.7 Periapical abscess without sinus; F17.290 Nicotine dependence, other tobacco product, uncomplicated
CPT/HCPCS: 96372; 99284; J0561; J0696

== ENCOUNTER → 2025-03-24 11:38 | Outpatient (BNVA) | payer MEDICAID, SELFPAY | PROVIDERS: Visit Provider Emergency Medicine | DX: J02.9 Acute pharyngitis, unspecified (principal) | CPT/HCPCS: 87071; 87880 ==

== ENCOUNTER → 2025-04-07 14:25 | Outpatient (BNVA) | payer MEDICAID, SELFPAY | PROVIDERS: Visit Provider Emergency Medicine | DX: R30.0 Dysuria (principal) | CPT/HCPCS: 81000; 81513; 87481; 87491; 87591; 87661 ==

== ENCOUNTER → 2025-04-16 13:11 | Outpatient (BNVA) | payer MEDICAID, SELFPAY | PROVIDERS: Visit Provider Nurse Practitioner Women's Health | DX: Z30.42 Encounter for surveillance of injectable contraceptive (principal) | CPT/HCPCS: 81025 ==